=== PATIENT | male | born 1985 | race Caucasian/White ===

== ENCOUNTER → 2021-10-29 | Outpatient (CLI) | payer BC, SELFPAY ==
[2021-10-29 17:51] LABS: Albumin, Serum 4.3 g/dL (3.2-5.0); BUN 20 mg/dL (7-18); BUN/Creat Ratio 23.4 RATIO (10-20); Creatinine, Serum 0.86 mg/dL (0.70-1.30); EST Glomerular Filtration Rate 107 mL/min (>60); Est Glom Filt Rate - Afr Amer 130 mL/min (>60); Glucose 95 mg/dL (74-106); Protein, Total 7.3 g/dL (6.4-8.2)
[2021-10-29 17:52] LABS: ALB/GLOB Ratio 1.4 RATIO (0.9-2.4); AST(SGOT) 18 U/L (15-37); Alanine Aminotransfer ALT/SGPT 38 U/L (16-61); Alkaline Phosphatase 79 U/L (45-117); Anion Gap 4 (5-15); Calcium,Total 8.8 mg/dL (8.5-10.1); Chloride 104 mmol/L (98-107); Potassium 4.3 mmol/L (3.5-5.1); Sodium Level 140 mmol/L (136-145)
[2021-10-29 17:54] LABS: Hematocrit 44.9 % (40-54); Hemoglobin 14.8 g/dL (13.0-16.5); Mean Corpuscular Hgb 30.3 pg (27.0-32.0); Mean Corpuscular Volume 91.8 fL (80-94); Mean Platelet Vol. 9.9 fl (6.2-12.0); Platelet Count 240 K/mm3 (150-450); RBC Distribution Width CV 11.9 % (11.6-14.6); RBC Distribution Width SD 40.1 fl (35.1-43.9); Red Blood Count 4.89 M/mm3 (4.6-6.2); White Blood Count 5.8 K/mm3 (4.4-11.0)
[2021-10-29 20:14] LABS: Chlamydia Trachomatis by PCR Negative (Negative); Probe Check PASS; Sample Adequacy Control PASS; Specimen Processing Control PASS
== END | disposition home or self-care (01) ==
LOC: MFPLAB 14:40
PROVIDERS: Visit Provider Family Medicine
DX: R30.0 Dysuria (principal); R35.89 Other polyuria
CPT/HCPCS: 36415; 80053; 81002; 85027; 87086; 87491

== ENCOUNTER → 2022-04-22 | Outpatient (CLI) | payer BC, SELFPAY ==
--- NOTE | 2022-04-22 10:47 | US_ITS ---
STUDY: ULTRASOUND - URINARY BLADDER REASON FOR EXAM: Male, 36 years old. Incomplete bladder emptying TECHNIQUE: Ultrasound evaluation of the urinary bladder was performed with real-time and static cast-scale imaging. COMPARISON: None. FINDINGS: There is no right UVJ calculus. There is a visualized right ureteral jet. There is no left UVJ calculus. There is a visualized left ureteral jet. The distended volume of the urinary bladder is 76.1 ml. The empty volume of the urinary bladder is 12.1 ml. The bladder wall is within normal limits. The bladder wall measures 0.2 cm. There is no demonstrated bladder wall mass lesion. There are no demonstrated bladder calculi. US/Post Void Residual Bladder IMPRESSION: Normal ultrasound of the urinary bladder. Electronically Signed: Familia Santos MD at 11:59 EDT ,
== END | disposition home or self-care (01) ==
PROVIDERS: PCP Family Medicine; Referring Provider Family Medicine; Visit Provider Family Medicine
DX: R33.9 Retention of urine, unspecified (principal)
CPT/HCPCS: 51798

== ENCOUNTER → 2022-04-29 | Outpatient (CLI) | payer BC, SELFPAY ==
[2022-04-29 18:10] LABS: Neisserai gonorrhoeae by PCR Negative (Negative); Probe Check PASS; Sample Adequacy Control PASS; Specimen Processing Control PASS
== END | disposition home or self-care (01) ==
LOC: LABSPEC 15:39
PROVIDERS: PCP Family Medicine; Visit Provider Nurse Practitioner Family
DX: I86.1 Scrotal varices (principal)
CPT/HCPCS: 87591

== ENCOUNTER → 2023-03-18 | Outpatient (CLI) | payer BC, SELFPAY ==
[2023-03-18 17:50] LABS: Absolute Lymphocyte Count 1.72 X10^3/uL (0.83-4.51); Basophil# 0.04 X10^3/uL; Basophil% 0.7 % (0-1); Eosinophil# 0.28 X10^3/uL; Eosinophils% 5.1 % (0-5); Hematocrit 46.8 % (40-54); Hemoglobin 15.1 g/dL (13.0-16.5); Lymphocyte # 1.72 X10^3/ul (0.83-4.51); Lymphocyte % 31.6 % (19-41); Mean Corp Hgb Conc 32.3 g/dL (32-36); Mean Corpuscular Hgb 30.6 pg (27.0-32.0); Mean Corpuscular Volume 94.7 fL (80-94); Mean Platelet Vol. 9.5 fl (6.2-12.0); Monocyte# 0.34 X10^3/uL; Monocyte% 6.3 % (0-10); NRBC Flagged by Analyzer 0 % (0-5); Neutrophil # 3.04 X10^3/uL (2.7-7.7); Neutrophil % 55.9 % (47-70); Platelet Count 217 K/mm3 (150-450); RBC Distribution Width CV 12.3 % (11.6-14.6); RBC Distribution Width SD 42.7 fl (35.1-43.9); Red Blood Count 4.94 M/mm3 (4.6-6.2); White Blood Count 5.4 K/mm3 (4.4-11.0)
[2023-03-18 18:35] LABS: ALB/GLOB Ratio 1.5 RATIO (0.9-2.4); AST(SGOT) 20 U/L (15-37); Alanine Aminotransfer ALT/SGPT 39 U/L (16-61); Albumin, Serum 4.2 g/dL (3.2-5.0); Alkaline Phosphatase 84 U/L (45-117); Anion Gap 4 (5-15); BUN 23 mg/dL (7-18); BUN/Creat Ratio 29.8 RATIO (10-20); Calcium,Total 8.3 mg/dL (8.5-10.1); Chloride 106 mmol/L (98-107); Cholesterol 222 mg/dL (200); Creatinine, Serum 0.77 mg/dL (0.70-1.30); EST Glomerular Filtration Rate 120 mL/min (>60); Est Glom Filt Rate - Afr Amer 145 mL/min (>60); Globulin 2.8 g/dL (2.2-4.2); Glucose 93 mg/dL (74-106); High Density Lipoprotein 65 mg/dL; Potassium 4.4 mmol/L (3.5-5.1); Sodium Level 138 mmol/L (136-145); Thyroid Stim Hormone (TSH) 2.35 uIU/mL (0.358-3.74); Triglycerides 61 mg/dL; Very Low Density Lipoprotein 12 mg/dL (5-40)
[2023-03-18 19:05] LABS: Hemoglobin A1c 5.2 % (3.8-5.6)
== END | disposition home or self-care (01) ==
PROVIDERS: PCP Family Medicine; Visit Provider Family Medicine
DX: Z00.00 Encounter for general adult medical examination without abnormal findings (principal); Z13.0 Encounter for screening for diseases of the blood and blood-forming organs and certain disorders involving the immune mechanism; Z13.1 Encounter for screening for diabetes mellitus
CPT/HCPCS: 36415; 80053; 80061; 83036; 84443; 85025

== ENCOUNTER → 2023-09-15 | Outpatient (CLI) | payer BC, SELFPAY ==
--- NOTE | 2023-09-15 17:09 | RAD_ITS ---
STUDY: X-RAY - RIGHT WRIST REASON FOR EXAM: Male, 38 years old. pain TECHNIQUE: 3 view(s) of the wrist were obtained. COMPARISON: None. FINDINGS: Normal visualized distal radius and ulna. Normal radiocarpal articulation. Normal distal radioulnar articulation. Normal carpal bones. Normal carpal articulations. Normal carpometacarpal articulation of the thumb. Normal second through fifth carpometacarpal articulations. Normal visualized metacarpal bones. The soft tissue structures are unremarkable. RAD/Wrist min 3 Views IMPRESSION: Normal x-ray examination of the wrist. Electronically Signed: Arley Garcia MD at 17:27 EDT ,
== END | disposition home or self-care (01) ==
LOC: MTRAD 17:07
PROVIDERS: PCP Family Medicine; Referring Provider Family Medicine; Visit Provider Family Medicine
DX: S63.509A Unspecified sprain of unspecified wrist, initial encounter (principal)
CPT/HCPCS: 73110

== ENCOUNTER → 2024-03-23 | Outpatient (CLI) | payer BC, SELFPAY ==
[2024-03-23 17:43] LABS: Absolute Lymphocyte Count 2.27 X10^3/uL (0.83-4.51); Basophil# 0.05 X10^3/uL; Basophil% 0.7 % (0-1); Eosinophil# 0.29 X10^3/uL; Eosinophils% 4.1 % (0-5); Hematocrit 43.7 % (40-54); Hemoglobin 14.3 g/dL (13.0-16.5); Lymphocyte # 2.27 X10^3/ul (0.83-4.51); Lymphocyte % 32.3 % (19-41); Mean Corp Hgb Conc 32.7 g/dL (32-36); Mean Corpuscular Hgb 30.2 pg (27.0-32.0); Mean Corpuscular Volume 92.2 fL (80-94); Mean Platelet Vol. 9.5 fl (6.2-12.0); Monocyte# 0.42 X10^3/uL; NRBC Flagged by Analyzer 0 % (0-5); Neutrophil # 3.97 X10^3/uL (2.7-7.7); Neutrophil % 56.5 % (47-70); Platelet Count 223 K/mm3 (150-450); RBC Distribution Width CV 12.1 % (11.6-14.6); RBC Distribution Width SD 41.7 fl (35.1-43.9); Red Blood Count 4.74 M/mm3 (4.6-6.2)
[2024-03-23 18:37] LABS: ALB/GLOB Ratio 1.6 RATIO (0.9-2.4); AST(SGOT) 24 U/L (15-37); Alanine Aminotransfer ALT/SGPT 44 U/L (16-61); Albumin, Serum 4.3 g/dL (3.2-5.0); Alkaline Phosphatase 83 U/L (45-117); Anion Gap 5 (5-15); BUN 14 mg/dL (7-18); BUN/Creat Ratio 18.1 RATIO (10-20); Calcium,Total 9.3 mg/dL (8.5-10.1); Chloride 104 mmol/L (98-107); Cholesterol 222 mg/dL (200); Creatinine, Serum 0.77 mg/dL (0.70-1.30); EST Glomerular Filtration Rate 119 mL/min (>60); Est Glom Filt Rate - Afr Amer 144 mL/min (>60); Globulin 2.7 g/dL (2.2-4.2); Glucose 92 mg/dL (74-106); High Density Lipoprotein 76 mg/dL; Potassium 3.9 mmol/L (3.5-5.1); Sodium Level 138 mmol/L (136-145); Triglycerides 76 mg/dL; Very Low Density Lipoprotein 15 mg/dL (5-40)
[2024-03-23 18:53] LABS: Vitamin D,25 Hydroxy 26.1 ng/mL
== END | disposition home or self-care (01) ==
LOC: MFPLAB 16:16
PROVIDERS: PCP Family Medicine; Visit Provider Family Medicine
DX: Z13.1 Encounter for screening for diabetes mellitus (principal); E83.51 Hypocalcemia; E78.5 Hyperlipidemia, unspecified
CPT/HCPCS: 36415; 80053; 80061; 82306; 85025

== ENCOUNTER → 2025-03-29 | Outpatient (CLI) | payer BC, SELFPAY ==
--- OUTSIDE RECORDS SUMMARY | 2025-01-19 13:19 | XMS RPT_ITS ---
Author Name Auto Generated Organization OHIP Care Team Providers Care Shipyard Helper Name Role Phone ARIAN ORELLANA Attending Uriel WALSH MD, TONNY Primary Care Unavailable MANUEL ACOSTA Attending Unavailable JAIRO LEONE Primary Care Unavailabl e MANEUL ACOSTA Attending Unavailable JAIRO LEONE Primary Care Unavailabl e MANUEL ACOSTA Attending Unavailable JAIRO LEONE Primary Care Unavailabl e PROBLEMS DATE TYPE CONDITION / CODE ATTENDING STATUS [facility] 12/03/2023 Active Malignant melano ma of right lower extremity including hip (HCC) / C43.71(ICD-10) MANUEL ACOSTA Active [facility] PROCEDURES No Procedure Records Found RESULTS CNOV Observed: 01/19/2025 1:30 PM Status: COMPLETED Source: [facility] Office Visit (AGGENS3) HOLLAND SPEARS ([id number]) 1985 M Date Time Provider Department 01/19/25 1:30 PM MANUEL ACOSTA3 During your visit today, we recorded the following information about you: Pulse Blood pressure Weight Height 71/minute 110/82 78.7 kg 1.778 m Manuel Acosta MD 01/19/2025 1:42 PM Signed Manuel Acosta M.D. Surgical Oncology [address] [place] [address], [address] [place] [address] Xavier Spears is a 39-year-old male with a history of stage IIA melanoma of the right lower leg, presenting for a routine surveillance visit. Xavier reports doing well since the last visit, with no significant issues. He occasionally experiences mild numbness and tingling at the site of the melanoma, but these symptoms are infrequent and not bothersome. He denies any swelling of the leg. He is still following up with dermatology and has not had any new biopsies. The ROS, medical, surgical, family, and social history were reviewed by Manuel Acosta MD. BP 110/82 (BP Site: Left Arm, BP Position: Sitting, BP Cuff Size: Regular Adult) Pulse 71 Ht 177.8 cm (5' 10) Wt 78.7 kg (173 lb 6.4 oz) SpO2 98% BMI 24.88 kg/m? BMI 24.88 kg/(m2) Physical Exam Constitutional: General: He is not in acute distress. HENT: Head: Normocephalic and atraumatic. Eyes: Pupils: Pupils are equal, round, and reactive to light. Neck: Thyroid: No thyromegaly. Trachea: No tracheal deviation. Cardiovascular: Rate and Rhythm: Normal rate and regular rhythm. Heart sounds: Normal heart sounds. Pulmonary: Effort: Pulmonary effort is normal. No respiratory distress. Breath sounds: Normal breath sounds. No stridor. Abdominal: General: There is no distension. Palpations: Abdomen is soft. Tenderness: There is no abdominal tenderness. Musculoskeletal: General: No deformity. Normal range of motion. Lymphadenopathy: Lower Body: No right inguinal adenopathy. No left inguinal adenopathy. Skin: General: Skin is warm and dry. Findings: No erythema or rash. Comments: Well healed WLE site with no nodularity or pigmentation; no signs of recurrence Neurological: Mental Status: He is alert and oriented to person, place, and time. Psychiatric: Mood and Affect: Affect normal. Judgment: Judgment normal. Cancer Staging Malignant melanoma of right lower extremity including hip (HCC) Staging form: Melanoma of the Skin, AJCC 8th Edition - Pathologic: Stage IIA (pT3a, pN0, cM0) - Unsigned 1. Malignant melanoma of right lower extremity including hip (HCC) (C43.71) - Stage IIA melanoma of the right lower leg, currently stable with no new issues. Occasional paresthesia noted at the site, likely due to nerve irritation post-surgery; no significant concern at this time. Discussed potential for local injections or lidocaine patches if paresthesia becomes bothersome. No new biopsies or dermatological concerns. Scheduled follow-up in 6 months for continued surveillance. If 6-month follow-ups remain stable, will transition to annual visits until 5 years post-diagnosis. Recording using [employer] software for draft documentation of the visit was discussed with the patient/authorized graphic art sales representative; all questions welcomed and answered. Patient/authorized graphic art sales representative agreed to proceed I spent a total of 20 minutes on the date of the service which included preparing to see the patient, completing clinical documentation, performing a medically appropriate examination, and counseling and educating the patient/family/caregiver. Manuel Acosta MD 01/19/2025 1:41 PM Allergies As of Date: 01/19/2025 Noted Allergy Reaction AMOXICILLIN 03/17/2023 2 - Rash Date Reviewed: 01/19/2025 Reviewed by: Manuel Acosta MD - Fully Assessed Reason for Visit: Established Patient [175] Cmt: 3 month follow up Primary Visit Diagnosis:Malignant melanoma of right lower extremity including hip (HCC) [C43.71] Prescriptions as of 01/19/2025 - cholecalciferol, vitamin D3, (VITAMIN D3 ORAL) Take by mouth. - oxyCODONE IR (ROXICODONE) 5 mg immediate release tablet Take 1 tablet by mouth every 6 hours as needed for pain. - mupirocin (BACTROBAN) 2 % ointment Apply to the affected areas twice daily. Problem List As Of Date 01/19/2025 Noted Resolved Malignant melanoma of right lower extremity inc*12/03/2023 Level of Service: OFFICE/OUTPATIENT ESTABLISHED LOW MDM 20 MIN [57745] Additional E/M codes: VISIT CPLX INHERENT EANDM ASSOC WITH MED * Encounter Status:Closed by MANUEL ACOSTA on 01/19/25 PROGRESS Observed: 01/19/2025 1:26 PM Status: COMPLETED Source: [facility] HNO ID: [id number] Author: MANUEL ACOSTA MD Service: ? Author Type: Physician Type: Progress Notes Filed: 01/19/2025 13:42 Note Text: Manuel Acosta M.D. Surgical Oncology 1 [facility], [address] [place] [address] Xavier Spears is a 39-year-old male with a history of stage IIA melanoma of the right lower leg, presenting for a routine surveillance visit. Xavier reports doing well since the last visit, with no significant issues. He occasionally experiences mild numbness and tingling at the site of the melanoma, but these symptoms are infrequent and not bothersome. He denies any swelling of the leg. He is still following up with dermatology and has not had any new biopsies. The ROS, medical, surgical, family, and social history were reviewed by Manuel Acosta MD. BP 110/82 (BP Site: Left Arm, BP Position: Sitting, BP Cuff Size: Regular Adult) Pulse 71 Ht 177.8 cm (5' 10) Wt 78.7 kg (173 lb 6.4 oz) SpO2 98% BMI 24.88 kg/m? BMI 24.88 kg/(m2) Physical Exam Constitutional: General: He is not in acute distress. HENT: Head: Normocephalic and atraumatic. Eyes: Pupils: Pupils are equal, round, and reactive to light. Neck: Thyroid: No thyromegaly. Trachea: No tracheal deviation. Cardiovascular: Rate and Rhythm: Normal rate and regular rhythm. Heart sounds: Normal heart sounds. Pulmonary: Effort: Pulmonary effort is normal. No respiratory distress. Breath sounds: Normal breath sounds. No stridor. Abdominal: General: There is no distension. Palpations: Abdomen is soft. Tenderness: There is no abdominal tenderness. Musculoskeletal: General: No deformity. Normal range of motion. Lymphadenopathy: Lower Body: No right inguinal adenopathy. No left inguinal adenopathy. Skin: General: Skin is warm and dry. Findings: No erythema or rash. Comments: Well healed WLE site with no nodularity or pigmentation; no signs of recurrence Neurological: Mental Status: He is alert and oriented to person, place, and time. Psychiatric: Mood and Affect: Affect normal. Judgment: Judgment normal. Cancer Staging Malignant melanoma of right lower extremity including hip (HCC) Staging form: Melanoma of the Skin, AJCC 8th Edition - Pathologic: Stage IIA (pT3a, pN0, cM0) - Unsigned 1. Malignant melanoma of right lower extremity including hip (HCC) (C43.71) - Stage IIA melanoma of the right lower leg, currently stable with no new issues. Occasional paresthesia noted at the site, likely due to nerve irritation post-surgery; no significant concern at this time. Discussed potential for local injections or lidocaine patches if paresthesia becomes bothersome. No new biopsies or dermatological concerns. Scheduled follow-up in 6 months for continued surveillance. If 6-month follow-ups remain stable, will transition to annual visits until 5 years post-diagnosis. Recording using [employer] software for draft documentation of the visit was discussed with the patient/authorized graphic art sales representative; all questions welcomed and answered. Patient/authorized graphic art sales representative agreed to proceed I spent a total of 20 minutes on the date of the service which included preparing to see the patient, completing clinical documentation, performing a medically appropriate examination, and counseling and educating the patient/family/caregiver. Manuel Acosta MD 01/19/2025 1:41 PM PROGRESS Observed: 10/20/2024 10:46 AM Status: COMPLETED Source: [facility] HNO ID: [id number] Author: MANUEL ACOSTA MD Service: ? Author Type: Physician Type: Progress Notes Filed: 10/20/2024 11:07 Note Text: Manuel Acosta M.D. Surgical Oncology 1 [facility], [address] [place] [address] Xavier is a 39-year-old male with a history of stage I melanoma of the right lower leg, presenting for a routine follow-up. Xavier underwent a wide local excision and sentinel lymph node biopsy approximately 1.5 years ago, with negative lymph node results. He was last seen 3 months ago and reports doing well overall. He last saw his reservations specialist 2 months ago, who did not find anything concerning. He has not noticed any new lumps or bumps but has observed a few new spots he wants to be examined. He occasionally experiences tingling at the excision site but otherwise feels good. He also reports a lymph node in his neck that has improved but requests an evaluation. He had a sore throat for 2 days, described as feeling like splinters in his throat, without mucus. The lymph node was bothersome, especially when swallowing and lying down, but has since improved. He denies any new tattoos. The ROS, medical, surgical, family, and social history were reviewed by Manuel Acosta MD. BP 110/70 Pulse 69 Ht 177.8 cm (5' 10) SpO2 98% BMI 25.94 kg/m? No weight on file for this encounter. Physical Exam Constitutional: General: He is not in acute distress. HENT: Head: Normocephalic and atraumatic. Eyes: Pupils: Pupils are equal, round, and reactive to light. Neck: Thyroid: No thyromegaly. Trachea: No tracheal deviation. Cardiovascular: Rate and Rhythm: Normal rate and regular rhythm. Heart sounds: Normal heart sounds. Pulmonary: Effort: Pulmonary effort is normal. No respiratory distress. Breath sounds: Normal breath sounds. No stridor. Abdominal: General: There is no distension. Palpations: Abdomen is soft. Tenderness: There is no abdominal tenderness. Musculoskeletal: General: No deformity. Normal range of motion. Lymphadenopathy: Cervical: No cervical adenopathy. Lower Body: No right inguinal adenopathy. No left inguinal adenopathy. Skin: General: Skin is warm and dry. Findings: No erythema or rash. Comments: Well healed WLE site with no signs of recurrence Neurological: Mental Status: He is alert and oriented to person, place, and time. Psychiatric: Mood and Affect: Affect normal. Judgment: Judgment normal. Cancer Staging Malignant melanoma of right lower extremity including hip (HCC) Staging form: Melanoma of the Skin, AJCC 8th Edition - Pathologic: Stage IIA (pT3a, pN0, cM0) - Unsigned 1. Malignant melanoma of right lower extremity including hip (HCC) (C43.71) Routine follow-up today; last seen 3 months ago. Dermatology follow-up 2 months ago was unremarkable. Advised patient to have these lesions evaluated by a reservations specialist at the next appointment in about a month. Educated patient on the benign nature of the mole and the potential pre-cancerous nature of actinic keratosis, which can be treated with cryotherapy. Discussed the transient nature of lymphadenopathy associated with recent upper respiratory infection; current lymph node swelling has resolved. Scheduled next follow-up in 3 months; if that visit is unremarkable, will extend follow-up intervals to 6 months, aiming for a2-year post-treatment milestone. Recording using [employer] software for draft documentation of the visit was discussed with the patient/authorized graphic art sales representative; all questions welcomed and answered. Patient/authorized graphic art sales representative agreed to proceed I spent a total of 30 minutes on the date of the service which included preparing to see the patient, completing clinical documentation, performing a medically appropriate examination, and counseling and educating the patient/family/caregiver. Manuel Acosta MD 10/20/2024 11:06 AM CNOV Observed: 10/20/2024 10:45 AM Status: COMPLETED Source: [facility] Office Visit (AGGENS3) HOLLAND SPEARS ([id number]) 1985 M Date Time Provider Department 10/20/24 10:45 AM MANUEL ACOSTA3 During your visit today, we recorded the following information about you: Pulse Blood pressure Height 69/minute 110/70 1.778 m Manuel Acosta MD 10/20/2024 11:07 AM Signed Manuel Acosta M.D. Surgical Oncology 1 [facility], [facility] [address] [place] [id number] Xavier is a 39-year-old male with a history of stage I melanoma of the right lower leg, presenting for a routine follow-up. Xavier underwent a wide local excision and sentinel lymph node biopsy approximately 1.5 years ago, with negative lymph node results. He was last seen 3 months ago and reports doing well overall. He last saw his reservations specialist 2 months ago, who did not find anything concerning. He has not noticed any new lumps or bumps but has observed a few new spots he wants to be examined. He occasionally experiences tingling at the excision site but otherwise feels good. He also reports a lymph node in his neck that has improved but requests an evaluation. He had a sore throat for 2 days, described as feeling like splinters in his throat, without mucus. The lymph node was bothersome, especially when swallowing and lying down, but has since improved. He denies any new tattoos. The ROS, medical, surgical, family, and social history were reviewed by Manuel Acosta MD. BP 110/70 Pulse 69 Ht 177.8 cm (5' 10) SpO2 98% BMI 25.94 kg/m? No weight on file for this encounter. Physical Exam Constitutional: General: He is not in acute distress. HENT: Head: Normocephalic and atraumatic. Eyes: Pupils: Pupils are equal, round, and reactive to light. Neck: Thyroid: No thyromegaly. Trachea: No tracheal deviation. Cardiovascular: Rate and Rhythm: Normal rate and regular rhythm. Heart sounds: Normal heart sounds. Pulmonary: Effort: Pulmonary effort is normal. No respiratory distress. Breath sounds: Normal breath sounds. No stridor. Abdominal: General: There is no distension. Palpations: Abdomen is soft. Tenderness: There is no abdominal tenderness. Musculoskeletal: General: No deformity. Normal range of motion. Lymphadenopathy: Cervical: No cervical adenopathy. Lower Body: No right inguinal adenopathy. No left inguinal adenopathy. Skin: General: Skin is warm and dry. Findings: No erythema or rash. Comments: Well healed WLE site with no signs of recurrence Neurological: Mental Status: He is alert and oriented to person, place, and time. Psychiatric: Mood and Affect: Affect normal. Judgment: Judgment normal. Cancer Staging Malignant melanoma of right lower extremity including hip (HCC) Staging form: Melanoma of the Skin, AJCC 8th Edition - Pathologic: Stage IIA (pT3a, pN0, cM0) - Unsigned 1. Malignant melanoma of right lower extremity including hip (HCC) (C43.71) Routine follow-up today; last seen 3 months ago. Dermatology follow-up 2 months ago was unremarkable. Advised patient to have these lesions evaluated by a reservations specialist at the next appointment in about a month. Educated patient on the benign nature of the mole and the potential pre-cancerous nature of actinic keratosis, which can be treated with cryotherapy. Discussed the transient nature of lymphadenopathy associated with recent upper respiratory infection; current lymph node swelling has resolved. Scheduled next follow-up in 3 months; if that visit is unremarkable, will extend follow-up intervals to 6 months, aiming for a 2-year post-treatment milestone. Recording using [employer] software for draft documentation of the visit was discussed with the patient/authorized graphic art sales representative; all questions welcomed and answered. Patient/authorized graphic art sales representative agreed to proceed I spent a total of 30 minutes on the date of the service which included preparing to see the patient, completing clinical documentation, performing a medically appropriate examination, and counseling and educating the patient/family/caregiver. Manuel Acosta MD 10/20/2024 11:06 AM Allergies As of Date: 10/20/2024 Noted Allergy Reaction AMOXICILLIN 03/17/2023 2 - Rash Date Reviewed: 10/20/2024 Reviewed by: Manuel Acosta MD - Fully Assessed Reason for Visit: F/U 3 Month [443] Cmt: 3 mo f/u, melanoma Primary Visit Diagnosis:Malignant melanoma of right lower extremity including hip (HCC) [C43.71] Prescriptions as of 10/20/2024 - cholecalciferol, vitamin D3, (VITAMIN D3 ORAL) Take by mouth. - oxyCODONE IR (ROXICODONE) 5 mg immediate release tablet Take 1 tablet by mouth every 6 hours as needed for pain. - mupirocin (BACTROBAN) 2 % ointment Apply to the affected areas twice daily. Problem List As Of Date 10/20/2024 Noted Resolved Malignant melanoma of right lower extremity inc*12/03/2023 Level of Service: OFFICE/OUTPATIENT ESTABLISHED MOD [facility] 30 MIN [42826] Additional E/M codes: VISIT CPLX INHERENT EANDM ASSOC WITH MED * Encounter Status:Closed by MANUEL ACOSTA on 10/20/24 CNOV Observed: 06/14/2024 2:45 PM Status: COMPLETED Source: [facility] Office Visit (RIRI) HOLLAND SPEARS ([id number]) 1985 M Date Time Provider Department 06/14/24 2:45 PM MANUEL ACOSTA During your visit today, we recorded the following information about you: Pulse Blood pressure Weight Height 74/minute 133/86 82 kg 1.778 m Manuel Acosta MD 06/15/2024 3:31 PM Signed Manuel Acosta M.D. Surgical Oncology 1 [facility], [address] [place] [address] Plan SUBJECTIVE HPI Holland Spears is a 38 year old male presenting for follow up of melanoma of the right lower leg. Patient reports that since his last visit he has had no significant changes to his medical history. He reports no new or worrisome symptoms. He reports that he is following with dermatology as scheduled. He reports no significant skin lesions. The ROS, medical, surgical, family, and social history were reviewed by Manuel Acosta MD. OBJECTIVE BP 133/86 Pulse 74 Ht 177.8 cm (5' 10) Wt 82 kg (180 lb 12.4 oz) SpO2 98% BMI 25.94 kg/m? BMI 25.94 kg/(m2) Physical Exam Lymphadenopathy: Lower Body: No right inguinal adenopathy. No left inguinal adenopathy. Skin: Comments: Well healed WLE site of the right posterior lower leg. No nodularity or pigmentation concerning for recurrence. ASSESSMENT AND PLAN Cancer Staging Malignant melanoma of right lower extremity including hip (HCC) Staging form: Melanoma of the Skin, AJCC 8th Edition - Pathologic: Stage IIA (pT3a, pN0, cM0) - Unsigned Patient is currently MARLEY. I discussed his ongoing surveillance. He will continue to follow up with dermatology I as scheduled and with Surg Onc in 3 months. I spent a total of 20 minutes on the date of the service which included preparing to see the patient, completing clinical documentation, performing a medically appropriate examination, and counseling and educating the patient/family/caregiver. Manuel Acosta MD 06/14/2024 2:42 PM Allergies As of Date: 06/14/2024 Noted Allergy Reaction AMOXICILLIN 03/17/2023 2 - Rash Date Reviewed: 06/14/2024 Reviewed by: Manuel Acosta MD - Fully Assessed Reason for Visit: F/U 3 Month [443] Primary Visit Diagnosis:Malignant melanoma of right lower extremity including hip (HCC) [C43.71] Prescriptions as of 06/15/2024 - cholecalciferol, vitamin D3, (VITAMIN D3 ORAL) Take by mouth. - oxyCODONE IR (ROXICODONE) 5 mg immediate release tablet Take 1 tablet by mouth every 6 hours as needed for pain. - mupirocin (BACTROBAN) 2 % ointment Apply to the affected areas twice daily. Problem List As Of Date 06/14/2024 Noted Resolved Malignant melanoma of right lower extremity inc*12/03/2023 Level of Service: OFFICE/OUTPATIENT ESTABLISHED LOW [facility] 20 MIN [98227] Additional E/M codes: VISIT CPLX INHERENT EANDM ASSOC WITH MED * Encounter Status:Closed by MANUEL ACOSTA on 06/15/24 PROGRESS Observed: 06/14/2024 2:42 PM Status: COMPLETED Source: [facility] HNO ID: [id number] Author: MANUEL ACOSTA MD Service: ? Author Type: Physician Type: Progress Notes Filed: 06/15/2024 15:31 Note Text: Manuel Acosta M.D. Surgical Oncology 1 [facility], [address] [place] [address] Plan SUBJECTIVE HPI Holland Spears is a 38 year old male presenting for follow up of melanoma of the right lower leg. Patient reports that since his last visit he has had no significant changes to his medical history. He reports no new or worrisome symptoms. He reports that he is following with dermatology as scheduled. He reports no significant skin lesions. The ROS, medical, surgical, family, and social history were reviewed by Manuel Acosta MD. OBJECTIVE BP 133/86 Pulse 74 Ht 177.8 cm (5' 10) Wt 82 kg (180 lb 12.4 oz) SpO2 98% BMI 25.94 kg/m? BMI 25.94 kg/(m2) Physical Exam Lymphadenopathy: Lower Body: No right inguinal adenopathy. No left inguinal adenopathy. Skin: Comments: Well healed WLE site of the right posterior lower leg. No nodularity or pigmentation concerning for recurrence. ASSESSMENT AND PLAN Cancer Staging Malignant melanoma of right lower extremity including hip (HCC) Staging form: Melanoma of the Skin, AJCC 8th Edition - Pathologic: Stage IIA (pT3a, pN0, cM0) - Unsigned Patient is currently MARLEY. I discussed his ongoing surveillance. He will continue to follow up with dermatology I as scheduled and with Surg Onc in 3 months. I spent a total of 20 minutes on the date of the service which included preparing to see the patient, completing clinical documentation, performing a medically appropriate examination, and counseling and educating the patient/family/caregiver. Manuel Acosta MD 06/14/2024 2:42 PM ALLERGIES DATE TYPE / CODE NAME / CODE REACTION SEVERITY SOURCE 03/17/2023 DRUG INGREDI/[id number](SNO MED CT) AMOXICILLIN RASH [facility] ENCOUNTERS ADMIT/DISCHARGE ACCOUNT NUMBER ADMITTING ENCOUNTER CLASS LOCATION SOURCE 01/19/2025/ 5 [id number] Ambulatory [facility] ng:[id number] [facility] 10/20/2024/ 5 [id number] Ambulatory [facility] ng:[id number] [facility] 06/14/2024/ 4 [id number] [facility]/10/[facility]/ 4 [id number] Ambulatory ABuilding:[facility] MAIN PAYERS ENCOUNTER GUARANTOR PAYER SUBSCRIBER SOURCE 01/19/2025 Primary Insurance:BLUE ACCESS PPOPolicy Number: [id number] e Date:[id number] Name:Rina AQUINOB: [id number] [place] [address] [facility] 10/20/2024 Primary Insurance:BLUE ACCESS PPOPolicy Number: [id number] e Date:[id number] Name:Rina MOCK: [id number] [place] [address] [facility] 06/14/2024 Primary Insurance:BLUE ACCESS PPOPolicy Number: [id number] e Date:3112-60-58Pbfd Name:Rina MOCK: [id number] [place] [address] [facility] 05/10/2024 HOLLAND MOCK: [id number] [place] [address]Gve: () Primary Insurance:[employer] INSCOPolicy Number: [id number] e Date:[id number] Name:[facility] [place] [address] [address]GB: HOLLAND AQUINOB: [id number] [place] [address]Isi: () () [facility]
[2025-03-29 16:58] LABS: Anion Gap 12 (5-15); BUN 16 mg/dL (4-19); BUN/Creat Ratio 19.7 RATIO (10-20); Calcium,Total 9.6 mg/dL (7.6-11.0); Carbon Dioxide 25.5 mmol/L (21.0-32.0); Chloride 101 mmol/L (98-108); Cholesterol 238 mg/dL (<=200); Glucose 112 mg/dL (70-99); Low Density Lipoprotein Calc. 160 mg/dL; Potassium 4.7 mmol/L (3.3-5.1); Triglycerides 77 mg/dL; Very Low Density Lipoprotein 15 mg/dL (5-40); cholesterol:hdl ratio screen 3.79
== END | disposition home or self-care (01) ==
LOC: MFPLAB 12:03
PROVIDERS: Nurse Practitioner Family; PCP Family Medicine; Referring Provider Family Medicine; Visit Provider Family Medicine
DX: Z13.1 Encounter for screening for diabetes mellitus (principal); Z13.220 Encounter for screening for lipoid disorders
CPT/HCPCS: 36415; 80048; 80061

== ENCOUNTER → 2025-03-31 | Outpatient (CLI) | payer BC, SELFPAY | END | disposition home or self-care (01) | LOC: MFPLAB 14:54 | PROVIDERS: PCP Family Medicine; Referring Provider Family Medicine; Visit Provider Family Medicine | DX: R73.09 Other abnormal glucose (principal) | CPT/HCPCS: 36415; 83036 ==